=== PATIENT | male | born 1955 | race Caucasian/White ===

== ENCOUNTER 2018-07-31 18:05 | Emergency (ER) | payer OTHER ==
[~2018-07-31] VITALS: Ht 172.7 cm; Wt 68.2 kg
[2018-07-31 18:23] VITALS: Ht 172.7 cm; Wt 68.2 kg
[2018-07-31] MEDS ORDERED: ZOLOFT25 MG PO (18:24)
[2018-07-31] MEDS ORDERED: ATARAX 25 MG TA25 MG PO (18:25)
[2018-07-31] MEDS ORDERED: ALBUTEROL SULF8.5 GM (18:25)
[2018-07-31] MEDS ORDERED: ZYLOPRIM300 MG PO (18:25)
[2018-07-31] MEDS ORDERED: MOBIC7.5 MG PO (18:26)
[2018-07-31] MEDS ORDERED: LISINOPRIL20 MG PO (18:26)
[2018-07-31] MEDS ORDERED: PROTONIX40 MG PO (18:27)
[2018-07-31] MEDS ORDERED: NICOTINE PATCH (18:27)
[2018-07-31] MEDS ORDERED: ZALEPLON PO (18:28)
[2018-07-31 19:04] LABS: BASOPHILS 0.4 % (0-2); EOSINOPHILS 3.1 % (0-7); HEMATOCRIT 51.9 % (42.0-54.0); HEMOGLOBIN 18.2 g/dL (13.5-17.5); IMMATURE GRANULOCYTES 0.2 % (0-5); LYMPHOCYTES 23.6 % (15-50); MCH 32.7 pg (26.0-34.0); MCHC 35.1 g/dL (31.0-37.0); MCV 93.3 fL (80.0-100.0); MEAN PLATELET VOLUME 10.7 fL (7.4-10.4); MONOCYTES 4.1 % (2-11); NEUTROPHILS 68.6 % (40-80); PLATELET COUNT 158 10x3/uL (130-400); RBC 5.56 10x6/uL (4.20-6.10); RDW 13.2 % (11.5-14.5); WBC 9.3 10x3/uL (4.8-10.8)
[2018-07-31 19:33] LABS: ALKALINE PHOSPHATASE 83 U/L (46-116); ALT (SGPT) 17 U/L (10-68); BILIRUBIN - TOTAL 0.28 mg/dL (0.2-1.3); CALC OSMOLALITY 283 mosm/kg (275-300); CALCIUM 8.6 mg/dL (8.5-10.1); CARBON DIOXIDE 29.5 mmol/L (21.0-32.0); CHLORIDE - SERUM 105 mmol/L (98-107); CREATININE - SERUM 0.9 mg/dL (0.6-1.3); GLUCOSE 88 mg/dL (74-106); PROTEIN - SERUM 7.2 g/dL (6.4-8.2); SODIUM 143 mmol/L (136-145); UREA NITROGEN 12 mg/dL (7-18); eGFR NON AFRICAN AMERICAN > 90 mL/min (90-120)
[2018-07-31 20:05] VITALS: BP 180/89
== END 2018-07-31 20:08 | disposition home or self-care (01) ==
LOC: D.ER 18:05
PROVIDERS: Emergency Medicine
DX: F41.0 Panic disorder [episodic paroxysmal anxiety] (principal); I10 Essential (primary) hypertension